=== PATIENT | female | born 1955 | race Caucasian/White ===

== ENCOUNTER 2018-04-05 13:16 | Emergency (ER) | payer MEDICARE ==
[2018-04-05 13:47] VITALS: BP 92/65; PULSE 98; RESP 16; TEMP 97.5
[2018-04-05] MEDS ORDERED: TOBRAMYCIN 0.3% OPHTH DROPS 5 ML BTL RIGHT EYE STA (14:22)
--- NOTE | 2018-04-05 14:25 | ED ---
Eye Problem HPI - General Chief complaint: Eye Problems Stated complaint: eye problem Time Seen by Provider: 04/05/18 14:19 Source: patient, RN notes reviewed Mode of arrival: ambulatory Limitations: no limitations - History of Present Illness Initial comments: This a 62-year-old female presents emergency Department chief complaint of right eye irritation. She states has been bothersome for 1 week. She states initial up with some crusting of her eyes that she thought she had conjunctivitis or stye she's had in the past. She did call her doctor who placed her on ciprofloxacin but states for Floxin irritated eyes. Patient states that she will swelling today was concerned. She denies any blurred vision no though vision and denies any headache, fever, chills, neck pain or neck stiffness. 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 - Related Data Allergies Allergy/AdvReac Type Severity Reaction Status Date / Time sumatriptan [From Imitrex] Allergy Unknown Verified 04/05/18 14:21 Review of Systems ROS Statement: Those systems with pertinent positive or pertinent negative responses have been documented in the HPI. ROS Other: All systems not noted in ROS Statement are negative. Past Medical History Past Medical History: Hypertension Additional Past Medical History / Comment(s): sepsis. bronchitis. History of Any Multi-Drug Resistant Organisms: None Reported Past Surgical History: Cholecystectomy Additional Past Surgical History / Comment(s): polyp removed from right breast, gumline. 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 Past Psychological History: Depression Smoking Status: Never smoker Past Alcohol Use History: None Reported Past Drug Use History: None Reported General Exam General appearance: alert, in no apparent distress Head exam: Present: atraumatic Eye exam: Present: normal appearance, PERRL, EOMI, periorbital swelling ( Minimal right upper eyelid), other (Right thigh upper eyelid there is an internal stye noted). Absent: scleral icterus, conjunctival injection, periorbital tenderness ENT exam: Present: normal exam, normal oropharynx, mucous membranes moist Neck exam: Present: normal inspection, full ROM. Absent: tenderness, meningismus, lymphadenopathy Respiratory exam: Present: normal lung sounds bilaterally. Absent: respiratory distress, wheezes, rales, rhonchi, stridor Cardiovascular Exam: Present: regular rate, normal rhythm, normal heart sounds. Absent: systolic murmur, diastolic murmur, rubs, gallop, clicks Course Vital Signs 04/05/18 13:38 Temperature 97.5 F L Pulse Rate 98 Respiratory 16 Rate Blood Pressure 92/65 O2 Sat by Pulse 98 Oximetry Medical Decision Making - Medical Decision Making 62-year-old female presented for right eye irritation. Patient has a right internal stye. She'll be placed on Tobrex eyedrops by to apply warm compresses and to follow-up with on-call urology if no relief of symptoms. Disposition Clinical Impression: Internal hordeolum of right eye Disposition: HOME SELF-CARE Condition: Stable Instructions: Alexei (ED) Additional Instructions: Please return to the Emergency Department if symptoms worsen or any other concerns. Use Tobrex eyedrops 1 drop every 4 hours for 7 days. Is patient prescribed a controlled substance at d/c from ED?: No Referrals: Bal Burgess MD [Primary Care Provider] - 1-2 days Giselle Cruz MD [STAFF PHYSICIAN] - 1-2 days Time of Disposition: 14:25
== END 2018-04-05 14:52 | disposition home or self-care (01) ==
LOC: EC 13:16
DX: H00.021 Hordeolum internum right upper eyelid (principal); Z88.8 Allergy status to other drugs, medicaments and biological substances
CPT/HCPCS: 99283

== ENCOUNTER 2018-11-02 23:06 | Emergency (ER) | payer MEDICARE ==
[2018-11-02 23:14] VITALS: PULSE 72; RESP 20; TEMP 97.6
[2018-11-02 23:15] VITALS: BP 95/64
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
== END 2018-11-02 23:48 | disposition home or self-care (01) ==
LOC: EC 23:06
DX: Z77.21 Contact with and (suspected) exposure to potentially hazardous body fluids (principal); I10 Essential (primary) hypertension; F32.9 Major depressive disorder, single episode, unspecified; Z79.899 Other long term (current) drug therapy; Z88.8 Allergy status to other drugs, medicaments and biological substances; W46.0XXA Contact with hypodermic needle, initial encounter
CPT/HCPCS: 99283